=== PATIENT | male | born 1965 | race Caucasian/White ===

== ENCOUNTER → 2019-05-17 | Outpatient (CLI) | payer BC ==
--- NOTE | 2019-05-17 18:20 | MR ---
EXAMINATION TYPE: MR brain w con DATE OF EXAM: 05/17/2019 COMPARISON: None HISTORY: Memory loss CONTRAST: Multiplanar multiecho imaging on a 1.5 Lidya magnet is performed through the brain. All images are po st contrast. FINDINGS: Cranial vertebral junction is normal. Pituitary appears normal. Diffusion-weighted imaging is unremarkable. No suspicious acute ischemic areas are evident. Normal vascular flow voids are prese nt. Ventricles and sulci are appropriate for the patient's age. There is a subcortical white matter change within the right parietal lobe measuring 0.4 cm. A few add itional punctate subcortical and deep white matter changes are present greater on the right. Addition al area of increased size white matter changes in the posterior right parietal lobe measuring 0.6 cm. Series 501 image 21. Small Virchow-Waylon space appears to be in the deep white matter adjacent to the right lateral ventri francisca posterior horn. Series 601 image 16. IMPRESSION: Scattered white matter changes greater on the right are nonspecific. Differential primarily includes microvascular ischemic change.
== END | disposition home or self-care (01) ==
LOC: RADMRIMAIN 14:17
PROVIDERS: ATTEND Family Medicine
DX: R90.89 Other abnormal findings on diagnostic imaging of central nervous system (principal); R41.3 Other amnesia
CPT/HCPCS: 70552; A9585